=== PATIENT | female | born 1985 | race Caucasian/White ===

== ENCOUNTER → 2018-12-13 | Outpatient (CLI) | payer OTHER ==
--- NOTE | 2018-12-13 12:07 | RADIOLOGY REPORT (SQ) ---
EXAM DESCRIPTION: SHOULDER RIGHT 2 OR MORE VIEWS COMPLETED DATE/TIME: 12/13/2018 10:40 am REASON FOR STUDY: PAIN IN RIGHT SHOULDER M25.511 PAIN IN RIGHT SHOULDER COMPARISON: None. NUMBER OF VIEWS: Three views. TECHNIQUE: Internal rotation, external rotation, and Y view images acquired of the right shoulder. LIMITATIONS: None. FINDINGS: MINERALIZATION: Normal. BONES: No acute fracture or dislocation. No worrisome bone lesions. JOINTS: No glenohumeral dislocation. No acromioclavicular joint widening. VISUALIZED LUNGS AND RIBS: No pneumothorax. No rib fracture. SOFT TISSUES: No radiopaque foreign body. OTHER: No other significant finding. IMPRESSION: NEGATIVE STUDY OF THE RIGHT SHOULDER. NO RADIOGRAPHIC EVIDENCE OF ACUTE INJURY. TECHNICAL DOCUMENTATION: JOB ID: [id number] [employer]- All Rights Reserved Reading location - IP/workstation name: [email or web address]
== END ==
LOC: OD 10:30
PROVIDERS: ATTEND Nurse Practitioner Family
DX: M25.511 Pain in right shoulder (principal)

== ENCOUNTER 2018-12-23 12:54 | Emergency (ER) | payer OTHER ==
[2018-12-23] MEDS ORDERED: IPRATROPIUM/ALBUTEROL 0.5-2.5 MG/3 ML AMPUL NEB ONE (13:31)
--- NOTE | 2018-12-23 13:32 | ER Document Report ---
ED General - General TRAVEL OUTSIDE OF THE [place] IN LAST 30 DAYS: No <JESUS LEI - Last Filed: 12/23/18 13:32> <GLENIS DOW - Last Filed: 12/23/18 15:24> - General Chief Complaint: Shortness Of Breath Stated Complaint: HEADACHE,CONGESTION,SHORT OF BREATH Time Seen by Provider: 12/23/18 13:22 Primary Care Provider: HECTOR HOWARD FNP-C [Primary Care Provider] - Follow up as needed - HPI Notes: Patient presents emergency department for evaluation. She states she "just does not feel right." She has had a headache, cough, upper respiratory infection type symptoms for the last 36 hours. She states that her children have had similar illnesses. She went to her pharmacy to pick remover symptomatic medications. She asked the pharmacist if she was able to take Mucinex with her Effexor. She was told she was. The patient then found out Via Internet research that this causes an interaction. She states she feels as if her heart is racing and she feels slightly short of breath. She states she does not feel as if she has the flu. She has had influenza in the past and this does not feel similar. She has had no nausea or vomiting. No fevers. She just has a mild headache and cough, as well as this feeling after taking the Mucinex. (GLENIS DOW) - Related Data Allergies/Adverse Reactions: clindamycin Allergy (Verified 12/23/18 13:33) fluoxetine [From Prozac] Allergy (Verified 12/23/18 13:33) Past Medical History - Social History Smoking Status: Never Smoker Chew tobacco use (# tins/day): No Frequency of alcohol use: None Drug Abuse: None Patient has suicidal ideation: No Patient has homicidal ideation: No Renal/ Medical History: Denies: Hx Peritoneal Dialysis <JESUS LEI - Last Filed: 12/23/18 13:32> - General Information source: Patient - Social History Family History: Reviewed & Not Pertinent <GLENIS DOW - Last Filed: 12/23/18 15:24> Review of Systems - Review of Systems Constitutional: No symptoms reported EENT: Nose congestion Respiratory: Cough, Short of breath Genitourinary: No symptoms reported Musculoskeletal: No symptoms reported Skin: No symptoms reported Neurological/Psychological: No symptoms reported <KENDALL DOWKATHE Mares - Last Filed: 12/23/18 15:24> Physical Exam <GLENIS DOW Vishnu - Last Filed: 12/23/18 15:24> - Vital signs Vitals: Temp Pulse Resp BP Pulse Ox 98.5 F 120 H 18 128/85 H 100 12/23/18 13:04 12/23/18 13:04 12/23/18 13:04 12/23/18 13:04 12/23/18 13:04 - Notes Notes: Vital signs reviewed, please refer to chart. Patient is normocephalic, atraumatic. Pupils equal round, reactive to light. Neck is supple without meningismus. Heart is regular rate and rhythm. Lungs are clear to auscultation bilaterally. Abdomen is soft, nontender, normoactive bowel sounds throughout. Extremities without cyanosis, clubbing, edema. Peripheral pulses are equal. Skin is warm and dry. Patient is awake, alert, neurological exam is nonfocal. Patient is extremely anxious in appearance. She is intermittently tearful. (GLENIS DOW) Course <GLENIS DOW Vishnu - Last Filed: 12/23/18 15:24> - Re-evaluation Re-evalutation: 12/23/18 15:21 Patient presents to the emergency department for evaluation. Orders for influenza swab and chest x-ray were placed in triage, including EKG. Patient became more anxious and tearful while here. We did discuss the interaction between her Effexor and the Robitussin. The Robitussin is slightly potentiated, which does explain a mild increase in her heart rate and the odd feeling she cannot describe. She was offered Ativan, declined. She was given IV fluids with significant improvement in her symptoms. Chest x-ray was found to be negative for any acute cardiopulmonary disease. Influenza swab was negative. She is told to go home and continue with symptomatic care for her upper respiratory infection. She is told to avoid Robitussin products. She does already have antihistamines that she uses for anxiety, she can use those as needed for nasal drainage. Otherwise she is to follow-up with primary care this week, return to the emergency department with worsening or new concerning symptoms. (GLENIS DOW) - Vital Signs Vital signs: Temp Pulse Resp BP Pulse Ox 98.5 F 120 H 18 128/85 H 100 12/23/18 13:04 12/23/18 13:04 12/23/18 13:04 12/23/18 13:04 12/23/18 13:04 - EKG Interpretation by Me Additional EKG results interpreted by me: 12/23/18 15:22 Sinus mechanism with a rate of 106 bpm. Normal axis and intervals, no acute ST changes concerning for ischemia or infarction. Nonspecific ST changes are noted. No old studies for comparison. (GLENIS DOW) Discharge <JESUS LEI - Last Filed: 12/23/18 13:32> <GLENIS DOW - Last Filed: 12/23/18 15:24> - Discharge Clinical Impression: Upper respiratory infection, Medication active ingredient bioavailability increased due to interaction Condition: Stable Instructions: Upper Respiratory Illness ([facility]) Additional Instructions: Avoid dextromethorphan/Robitussin-containing products in the future. Follow-up with your doctor this week. Rest, stay well-hydrated. Return to the urgency department with worsening or new concerning symptoms of any sort. Referrals: HECTOR HOWARD, BUFFER CHROME-C [Primary Care Provider] - Follow up as needed
--- NOTE | 2018-12-23 14:13 | RADIOLOGY REPORT (SQ) ---
EXAM DESCRIPTION: CHEST 2 VIEWS COMPLETED DATE/TIME: 12/23/2018 1:57 pm REASON FOR STUDY: cough, shortness of breath COMPARISON: None. EXAM PARAMETERS: NUMBER OF VIEWS: two views TECHNIQUE: Digital Frontal and Lateral radiographic views of the chest acquired. RADIATION DOSE: NA LIMITATIONS: none FINDINGS: LUNGS AND PLEURA: No opacities, masses or pneumothorax. No pleural effusion. MEDIASTINUM AND HILAR STRUCTURES: No masses or contour abnormalities. HEART AND VASCULAR STRUCTURES: Heart normal size. No evidence for failure. HARDWARE: None in the chest. OTHER: No other significant finding. BONES: No acute findings. Mild thoracic scoliosis. IMPRESSION: NO ACUTE RADIOGRAPHIC FINDING IN THE CHEST. TECHNICAL DOCUMENTATION: JOB ID: [id number] [place]-72 2010 [employer]- All Rights Reserved Reading location - IP/workstation name: [email or web address]
[2018-12-23 14:22] LABS: A TYPE INFLUENZA AG NEGATIVE (NEGATIVE); B INFLUENZA AG NEGATIVE (NEGATIVE)
[2018-12-23] MEDS ORDERED: NORMAL SALINE 1000 ML 1,000 ML IV ONE (14:31)
--- NOTE | 2018-12-23 15:49 | EKG REPORT ---
SEVERITY:- NORMAL ECG - SINUS TACHYCARDIA : Confirmed by: Luc Santa MD 23-Dec-2018 15:47:57
[2018-12-23 16:04] VITALS: BP 130/83
== END 2018-12-23 16:03 | disposition home or self-care (01) ==
LOC: ER 12:54
DX: J06.9 Acute upper respiratory infection, unspecified (principal); R51 Headache; R05 Cough; R06.02 Shortness of breath; R09.81 Nasal congestion; F41.9 Anxiety disorder, unspecified; R09.89 Other specified symptoms and signs involving the circulatory and respiratory systems; Z79.899 Other long term (current) drug therapy; Z88.1 Allergy status to other antibiotic agents
CPT/HCPCS: 93005; 94640; 99284; 96360; 87804; 71046; 93010; J7030; J7620